=== PATIENT | male | born 1985 | race Caucasian/White ===

== ENCOUNTER 2017-01-23 09:05 | Emergency (ER) | payer SELFPAY ==
[2017-01-23 09:17] VITALS: BP 127/69
--- NOTE | 2017-01-23 09:49 | UC ---
Headache HPI - HPI Summary HPI Summary: He has been having headaches for the past 6mo or so. He has been working much more than normal and sleeping much less. He hasno focal neurologic symptoms or deficits. He drinks about 4-5 cups of coffee per day and then has mountain dew as well. He takes excedrin migraine which helps. the headaches are worse in the morning and night. NO fevers, vomiting, vision changes, hearing changes. - History Of Current Complaint Chief Complaint: UCHeadache Stated Complaint: CRUZ,STOMACH COMPLAINT Time Seen by Provider: 01/23/17 09:20 Hx Obtained From: Patient Onset/Duration: Gradual Onset, Lasting Weeks, Resolved - Currently he does not have a headache. Onset Of Symptoms: Gradual Initially Headache Was: Moderate Currently Pain Is: Current Pain Scale(0-10)= - 0/10 Timing: Intermittent, Lasting: - hours. Character: Pressure, Migraine - Good temples. Location of Headache: Temporal Aggravating Factor(s): Nothing Allevating Factor(s): Medication Associated Signs And Symptoms: Positive: Negative - Allergies/Home Medications Allergies/Adverse Reactions: Allergies Allergy/AdvReac Type Severity Reaction Status Date / Time No Known Allergies Allergy Verified 01/23/17 09:18 Home Medications: Home Medications Fgfjakj-Hetfxfohvdzok-Rspsjhlr [Excedrin Migraine] 2 tab PO PRN 01/23/17 [ History] PMH/Surg Hx/FS Hx/Imm Hx Previously Healthy: Yes - Surgical History Surgical History: None - Family History Known Family History: Negative: Diabetes Family History: denies family history of DM, HTN , CAD - Social History Occupation: Employed Full-time Lives: With Family Alcohol Use: None Substance Use Type: None Smoking Status (MU): Heavy Every Day Tobacco Smoker Type: Cigarettes Amount Used/How Often: 1 pack per day Length of Time of Smoking/Using Tobacco: age 16 Household Exposure Type: Cigarettes Review of Systems Gastrointestinal: Abdominal Pain - Intermittently. No current headaches. 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 He has had left shoulder superior bump that is not tender. All Other Systems Reviewed And Are Negative: Yes Physical Exam Triage Information Reviewed: Yes Appearance: Well-Appearing, No Pain Distress, Well-Nourished Vital Signs: Initial Vital Signs Temp 98.7 F 11/22/17 09:10 Pulse 68 01/23/17 09:10 Resp 14 01/23/17 09:10 BP 127/69 01/23/17 09:10 Pulse Ox 99 01/23/17 09:10 Vital Signs Reviewed: Yes Eye Exam: Normal Eyes: Positive: Conjunctiva Clear, Other: - Fundoscopic good intact without papilledema. ENT: Positive: Pharynx normal, TMs normal. Negative: Nasal congestion Neck: Positive: Supple, Nontender, No Lymphadenopathy. Negative: Nuchal Rigidity Respiratory: Positive: Chest non-tender, Lungs clear, Normal breath sounds, No respiratory distress, No accessory muscle use. Negative: Respiratory distress, Decreased breath sounds, Accessory muscle use, Crackles, Rhonchi, Stridor, Wheezing Cardiovascular: Positive: RRR, No Murmur, Pulses Normal, Brisk Capillary Refill Abdomen Description: Positive: Nontender, No Organomegaly, Soft. Negative: Distended, Guarding Musculoskeletal: Positive: Strength Intact, ROM Intact, No Edema, Other: - Left shoulder full ROM and strength without pain.More prominent left AC joint without tenderness. Neurological Exam: Other - CN III-XII intact. STrenght in all extremeties intact and pronator drift intact. Finger to nose intact and no visual field defecits. Neurological: Positive: Alert, Muscle Tone Normal, Fatigued Psychological: Positive: Age Appropriate Behavior Skin: Negative: rashes Headache Course/Dx - Course Course Of Treatment: He has had symptoms for months. There are no signs of serious abd infection and his exam is benign. L shoulder AC joint is not tender. Headaches are ongoing without any focal neuro findings. He does not have insurance and will be collecting un employment and then will have health insurance. He goes to pcp in [place]. He has been told in no uncertain terms that he needs a pcp and insurance to get CT brain and x ray and f/u. He agrees. We did mention possibility of brain tumor although unlikely. He would like to hold off on testing for now due to cost. - Differential Dx/Diagnosis Provider Diagnoses: headaches. left AC joint sprain. Intermittent periumbilical abd pain. Discharge - Discharge Plan Condition: Good Disposition: HOME Patient Education Materials: Shoulder Pain (ED), General Headache (ED) Forms: *Work Release Referrals: Non Staff,Doctor [Primary Care Provider] - Additional Instructions: Follow up with your PCP in [place] as soon as possible. I would encourage you to get an x ray of the left shoulder and a CT of the brain as we discussed.
== END 2017-01-23 09:55 | disposition home or self-care (01) ==
LOC: UCCORT 09:05
DX: R51 Headache (principal); S43.52XA Sprain of left acromioclavicular joint, initial encounter; R10.33 Periumbilical pain; F17.210 Nicotine dependence, cigarettes, uncomplicated; Z79.82 Long term (current) use of aspirin; X58.XXXA Exposure to other specified factors, initial encounter; Y92.9 Unspecified place or not applicable
CPT/HCPCS: 99211; G0463

== ENCOUNTER 2017-01-28 15:24 | Emergency (ER) | payer SELFPAY ==
--- NOTE | 2017-01-28 16:28 | UC ---
Upper Extremity HPI - HPI Summary HPI Summary: Pt presents with left shoulder pain for 2months. 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 He often lifts and slings straps over the truck. About 2 months ago he remembers doing his usual work activities and then feeling some discomfort in his left shoulder. He let it go and it gradually improved. Recently over the last week, his left shoulder pain has been increasing to the point he cannot lift his arm above his head. His pain is located at the anterior aspect of the shoulder and is described as a sharp stab with movement and dull ache at rest. No numbness/ tingling. - History of Current Complaint Stated Complaint: LEFT SHOULDER PAIN Time Seen by Provider: 01/28/17 16:27 Hx Obtained From: Patient Onset/Duration: Gradual Onset Severity Initially: Mild Severity Currently: Moderate Pain Intensity: 4 Pain Scale Used: 0-10 Numeric Character: Sharp, Dull, Aching Aggravating Factor(s): Movement, Lifting, Abduction, Adduction Alleviating Factor(s): Heat, Ice, Rest - Allergies/Home Medications Allergies/Adverse Reactions: Allergies Allergy/AdvReac Type Severity Reaction Status Date / Time No Known Allergies Allergy Verified 01/28/17 16:37 PMH/Surg Hx/FS Hx/Imm Hx Previously Healthy: Yes - Surgical History Surgical History: None - Family History Known Family History: Negative: Diabetes Family History: denies family history of DM, HTN , CAD - Social History Occupation: Employed Full-time Lives: With Family Alcohol Use: None Substance Use Type: None Smoking Status (MU): Heavy Every Day Tobacco Smoker Type: Cigarettes Amount Used/How Often: 1 pack per day Length of Time of Smoking/Using Tobacco: age 16 Household Exposure Type: Cigarettes Review of Systems Constitutional: Negative Skin: Negative Respiratory: Negative Cardiovascular: Negative Neurovascular: Negative Musculoskeletal: Decreased ROM - Left shoulder, Other: - Pain left shoulder Neurological: Negative All Other Systems Reviewed And Are Negative: Yes Physical Exam Triage Information Reviewed: Yes Appearance: Well-Appearing, Well-Nourished Vital Signs Reviewed: Yes Neck: Positive: Supple, Nontender, No Lymphadenopathy, Other: - FROM Respiratory: Positive: Chest non-tender, Lungs clear, Normal breath sounds, No respiratory distress, No accessory muscle use Cardiovascular: Positive: RRR, No Murmur, Pulses Normal Musculoskeletal: Positive: Strength Limited @ - Left shoulder 3/5, ROM Limited @ - Left shoulder. Flexion to ~100deg before pain, Other: - Strength 3/5. No edema or obvious bony deformities. Positive apprehension. Positive empty can. Negative kang-dmitry, near, adams, and yergason tests. Neurological: Positive: Alert, Muscle Tone Normal, Other: - C4-T1 sensation intact. Reflexes: biceps, triceps, brachioradialis intact Psychological: Positive: Age Appropriate Behavior Upper Extremity Course/Dx - Course Course Of Treatment: XR negative. Activity as tolerated. RICE. Voltaren for pain during day. Flexeril at bedtime. F/u with orthopedics at their next available appt - Differential Dx/Diagnosis Differential Diagnosis/HQI/PQRI: Fracture (Closed), Strain, Sprain Provider Diagnoses: Internal derangement of left shoulder Discharge - Discharge Plan Condition: Stable Disposition: HOME Prescriptions: Cyclobenzaprine HCl [Flexeril 5 mg (NF)] 5 mg PO BEDTIME PRN #10 tab PRN Reason: Pain Diclofenac Sodium EC TAB* [Voltaren EC TAB*] 50 mg PO TID PRN #90 tab.ec PRN Reason: Pain Patient Education Materials: Shoulder Sprain (ED) Forms: *Work Release Referrals: Mahin Pierce MD [Medical Doctor] - Non Staff,Doctor [Primary Care Provider] - Additional Instructions: 1) Rest and heat/ice your shoulder 2) Please call orthopedics at the number below to schedule a follow up appointment. If you develop a fever, SOB, chest pain, new or worsening symptoms - please call your PCP or go to the ED.
[2017-01-28 16:36] VITALS: BP 126/77
--- NOTE | 2017-01-28 17:26 | RAD ---
INDICATION: Left shoulder pain COMPARISON: None TECHNIQUE: AP, lateral, and oblique views were obtained. FINDINGS: The bony structures, joint spaces, and soft tissues are normal for age. IMPRESSION: NEGATIVE EXAMINATION
== END 2017-01-28 17:58 | disposition home or self-care (01) ==
LOC: UCCORT 15:24
DX: S49.92XA Unspecified injury of left shoulder and upper arm, initial encounter (principal); X50.3XXA Overexertion from repetitive movements, initial encounter; Y93.89 Activity, other specified; Y92.9 Unspecified place or not applicable; Y99.0 Civilian activity done for income or pay; F17.210 Nicotine dependence, cigarettes, uncomplicated
CPT/HCPCS: 99212; G0463

== ENCOUNTER 2018-04-21 08:05 | Emergency (ER) | payer OTHER ==
[2018-04-21 08:20] VITALS: BP 137/84
--- NOTE | 2018-04-21 08:34 | UC ---
Shoulder Pain HPI - HPI Summary HPI Summary: 33-year-old male comes in with a chief complaint of left shoulder pain. This occurred yesterday at work. 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 Back in 2017 he had a similar injury. Patient reports that there is swelling in the left shoulder. Pain is worse with any kind of movement of the left shoulder. Pains better when he lets the arm hanging down. No complaint of any weakness or numbness or loss of circulation. No shortness of breath. - History of Current Complaint Chief Complaint: UCUpperExtremity Stated Complaint: WC - LEFT SHOULDER CONCERN Time Seen by Provider: 04/21/18 08:23 Pain Intensity: 8 - Allergies/Home Medications Allergies/Adverse Reactions: Allergies Allergy/AdvReac Type Severity Reaction Status Date / Time No Known Allergies Allergy Verified 04/21/18 08:16 Home Medications: Home Medications Ibuprofen TAB* [Advil TAB*] 400 mg PO Q6H PRN 04/21/18 [History Confirmed ] PMH/Surg Hx/FS Hx/Imm Hx Previously Healthy: Yes - Surgical History Surgical History: None - Family History Known Family History: Negative: Diabetes Family History: denies family history of DM, HTN , CAD - Social History Alcohol Use: None Substance Use Type: None Smoking Status (MU): Heavy Every Day Tobacco Smoker Type: Cigarettes Amount Used/How Often: 1 pack per day Length of Time of Smoking/Using Tobacco: age 16 Household Exposure Type: Cigarettes Review of Systems All Other Systems Reviewed And Are Negative: Yes Constitutional: Positive: Negative Skin: Positive: Negative Eyes: Positive: Negative ENT: Positive: Negative Respiratory: Positive: Negative Cardiovascular: Positive: Negative Gastrointestinal: Positive: Negative Motor: Positive: Decreased ROM Neurovascular: Positive: Negative Musculoskeletal: Positive: Other: - see hpi Neurological: Positive: Negative Psychological: Positive: Negative Is Patient Immunocompromised?: No Physical Exam Triage Information Reviewed: Yes Appearance: Well-Appearing, Well-Nourished, Pain Distress - with attempted rom lt shoulder Vital Signs: Initial Vital Signs Temp 99 F 04/21/18 08:17 Pulse 88 04/21/18 08:17 Resp 24 04/21/18 08:17 BP 137/84 04/21/18 08:17 Pulse Ox 99 04/21/18 08:17 Vital Signs Reviewed: Yes Eye Exam: Normal Eyes: Positive: Conjunctiva Clear Neck exam: Normal Neck: Positive: Supple Respiratory: Positive: Lungs clear, Normal breath sounds, No respiratory distress Cardiovascular: Positive: RRR Musculoskeletal: Positive: Other: - The patient has some swelling left distal Clavicle at the AC joint. There is some tenderness in the shoulder joint itself. Fingers wrist elbows have full range of motion full-strength. Right shoulder has full range of motion. Left shoulder secondary to pain has minimal range of motion in extension and abduction and internal rotation. Normal capillary refill no sensation deficit. Neurological Exam: Normal Neurological: Positive: Muscle Tone Normal Psychological Exam: Normal Psychological: Positive: Age Appropriate Behavior Skin Exam: Normal Shoulder Course/Dx - Course Course Of Treatment: Patient Name: GUY ALVARADO Medical Record#: [id number]. Ordering Physician: Troy Poe MD Acct.#: [id number]. : 1985 Age: 33 Sex: M Location: [facility]. Exam Date: 04/21/18828 ADM Status: REG ER. Order Information: SHOULDER LEFT 2+ VWS. Accession Number: [id number]. CPT: 84035. Indication: LEFT shoulder pain following injury April 20, 2018. Comparison: January 28, 2017. Technique: Internal rotation AP, external rotation Grashey, scapular Y, axillary views. LEFT shoulder. REPORT AND IMPRESSION: #. Negative for fracture. #. Normal acromioclavicular and glenohumeral joint alignment. #. Mild osteoarthritis at the acromioclavicular joint with osteophytosis and subchondral. sclerosis and cystic change. #. Negative for calcific tendinopathy or abnormal soft tissue contour. . < Electronically signed by Williams Merritt MD in [place]> 04/21/18 0848. On examination the worst pain is at the left acromioclavicular joint. Face discussed the x-ray reports with the patient. The overall plan is an anti- inflammatory muscle relaxer as needed. And have him out of work for a week. Follow-up with orthopedics or occupational medicine. We discussed range of motion stretches for the shoulder in the meantime. - Differential Dx/Diagnosis Provider Diagnosis: Left shoulder pain Discharge - Sign-Out/Discharge Documenting (check all that apply): Patient Departure All imaging exams completed and their final reports reviewed: Yes - Discharge Plan Condition: Stable Disposition: HOME Prescriptions: Cyclobenzaprine TAB* [Flexeril 10 MG TAB*] 10 mg PO TID PRN #15 tab PRN Reason: Pain Diclofenac Sodium EC TAB* [Voltaren EC TAB*] 50 mg PO TID PRN #60 tab.ec PRN Reason: Pain Patient Education Materials: Shoulder Pain (ED) Forms: *Work Release Referrals: Johny Dove MD [Medical Doctor] - Thanh Rose MD [Medical Doctor] - Additional Instructions: FOLLOW UP WITH ORTHOPEDICS, DR DOVE, OR OCUUPATIONAL MEDICINE, DR ROSE. GET RECHECKED FOR ANY WORSENING OF YOUR CONDITION OR QUESTIONS OR CONCERNS. - Billing Disposition and Condition Condition: STABLE Disposition: Home
== END 2018-04-21 09:15 | disposition home or self-care (01) ==
LOC: UCCORT 08:05
DX: M25.512 Pain in left shoulder (principal); F17.210 Nicotine dependence, cigarettes, uncomplicated
CPT/HCPCS: 99212; G0463